=== PATIENT | male | born 1965 | race Caucasian/White ===

== ENCOUNTER 2020-10-03 09:43 | Emergency (ER) | payer SELFPAY ==
[~2020-10-03] VITALS: Ht 172.7 cm; Wt 97.5 kg
[2020-10-03 09:45] VITALS: BP 129/885; Ht 172.7 cm; Wt 97.5 kg
== END 2020-10-03 10:33 | disposition home or self-care (01) ==
LOC: ED 09:43
DX: U07.1 COVID-19 (principal)
CPT/HCPCS: U0003